=== PATIENT | female | born 1980 | race Caucasian/White ===

== ENCOUNTER 2016-09-01 09:49 | Emergency (ER) | payer BC ==
[~2016-09-01] VITALS: Ht 162.6 cm; Wt 78.7 kg
[~2016-09-01 09:49] MED LIST: BACTDS PO; CEPH-443 PO; HYDR-906 PO; IBUP-1542 PO; PREN1TAB49 PO
[2016-09-01 10:04] VITALS: Ht 162.6 cm; Wt 78.7 kg
[2016-09-01] MEDS ORDERED: CEPH-443 PO (11:20)
[2016-09-01] MEDS ORDERED: BACTDS PO (11:20)
--- NOTE | 2016-09-01 11:26 | ERD ---
ER Documentation Chief Complaint Date/Time DATE: 09/01/16 TIME: 11:22 Chief Complaint INSECT BITE ON RT POSTERIOR UPPER LEG NEAR BUTTOCK HPI This is a 35-year-old female presenting to the emergency room stating that she got a bug bite on her right inner thigh and it has been tender for 2 days. Patient states that it started off itchy but then it itching is resolved and now it is painful. Patient states she had a history of abscess she is afraid this is turning into an abscess. Patient denies any fevers. Denies medical problems ROS All systems reviewed and are negative except as per history of present illness. Medications Home Meds Active Scripts Sulfamethoxazole-Trimethoprim* (Bactrim* DS) 800-160 Mg Tab, 1 TAB PO BID for 5 Days, TAB Prov:JAMIR GUALLPA PA-C 09/01/16 Cephalexin* (Keflex*) 500 Mg Capsule, 500 MG PO QID for 7 Days, CAP Prov:JAMIR GUALLPA PA-C 09/01/16 Hydrocodone/Acetaminophen ([place] 5-325 Tablet) 1 Each Tablet, 1 TAB PO Q6H Y for PAIN, #20 TAB Prov:VELMA ASH HUMAN RESOURCES OFFICE MANAGER 05/03/16 Ibuprofen* (Motrin*) 600 Mg Tab, 600 MG PO Q6H Y for PAIN AND OR ELEVATED TEMP, #30 TAB Prov:VELMA ASH NP 05/03/16 Cephalexin* (Keflex*) 500 Mg Capsule, 500 MG PO QID for 10 Days, CAP Prov:VELMA ASH NP 05/03/16 Sulfamethoxazole-Trimethoprim* (Bactrim* DS) 800-160 Mg Tab, 1 TAB PO BID for 10 Days, TAB Prov:VELMA ASH HUMAN RESOURCES OFFICE MANAGER 05/03/16 Reported Medications Vits W-Ca,Fe,Fa(<1MG) () 1 Tab Tablet, 1 TAB PO DAILY 11/15/11 Allergies Allergies: Coded Allergies: No Known Allergy (Unverified , 12/26/13) PMhx/Soc History of Surgery: No Anesthesia Reaction: No Hx Neurological Disorder: No Hx Respiratory Disorders: No Hx Cardiac Disorders: No Hx Psychiatric Problems: No Hx Miscellaneous Medical Probl: No Hx Alcohol Use: No Hx Substance Use: No Hx Tobacco Use: No Physical Exam Vitals Vital Signs Date Time Temp Pulse Resp B/P Pulse Ox O2 Delivery O2 Flow Rate FiO2 09/01/16 10:04 98.6 77 16 146/87 99 Physical Exam General: WD/WN, in no apparent distress, non-toxic appearing HENT: NC/AT Eyes: Conjunctiva normal Neck: Supple Pulm: Clear to auscultation, normal labored breathing; no wheezing/rales/ rhonchi heard CV: Good capillary refill GI: Non-distended, no guarding Back: No masses Ext: No clubbing, cyanosis, or edema Neuro: Moves on all fours Skin: 2 x 2 erythematous papule on the right inner thigh with mild induration, no evidence of purulence Normal turgor, color, and temperature. No ulcerations or rashes noted. Psych: Normal mood Procedures/MDM This is a 35-year-old female presenting to the emergency room with a complaint of an insect bite in the right inner thigh for the past 2 days which is likely to be mild cellulitis versus inflammatory response of insect bite. On examination it did not appear to have any drainage. There was no evidence of lymphangitis. Patient is suitable for outpatient antibiotic and to follow-up with the primary care physician. Discussed return the ER for any worsening symptoms. Patient understands and agrees with this plan Prescription Keflex and Bactrim was provided Departure Diagnosis: Primary Impression: Infected bite wound Condition: Stable Patient Instructions: Insect Sting/Bite, Infected Referrals: CECILIA COHEN MD (PCP) Additional Instructions: Take all medicines as directed. Return to this facility if you are not improving as expected. JAMIR GUALLPA PA-C Sep 01, 2016 11:26
== END 2016-09-01 11:25 | disposition home or self-care (01) ==
LOC: FTE 09:49
DX: S70.361A Insect bite (nonvenomous), right thigh, initial encounter (principal); L08.9 Local infection of the skin and subcutaneous tissue, unspecified; W57.XXXA Bitten or stung by nonvenomous insect and other nonvenomous arthropods, initial encounter; Y92.9 Unspecified place or not applicable
CPT/HCPCS: 99284

== ENCOUNTER 2017-12-03 08:25 | Emergency (ER) | END 2017-12-03 09:12 | disposition home or self-care (01) ==

== ENCOUNTER 2017-12-09 06:35 | Emergency (ER) | END 2017-12-09 08:54 | disposition home or self-care (01) ==

== ENCOUNTER 2017-12-11 08:26 | Emergency (ER) | END 2017-12-11 10:41 | disposition home or self-care (01) ==

== ENCOUNTER 2018-04-27 07:01 | Emergency (ER) | END 2018-04-27 07:47 | disposition home or self-care (01) ==

== ENCOUNTER 2018-08-22 08:09 | Emergency (ER) | payer BC ==
[~2018-08-22] VITALS: Ht 167.6 cm; Wt 88.9 kg
[~2018-08-22 08:09] MED LIST changes: +CIPR500T4 PO; +HYDR-4011 PO; -HYDR-906 PO; +ONDA4TAB14 PO; +PHEN-538 PO
[2018-08-22 08:10] VITALS: BP 165/81; PULSE 76; RESP 18; Ht 167.6 cm; Wt 88.9 kg
--- NOTE | 2018-08-22 09:04 | ERD ---
ER Documentation Chief Complaint Chief Complaint pain with urination x 2 days HPI 37-year-old female presents to the ED complaining of painful urination and frequency for the past 2 days. Patient denies fevers, abdominal pain, pain, hematuria, vaginal discharge. Patient states that she sexually active with one partner her . Patient states that she has a history of frequent urinary tract infections about a year ago, she states that she did follow-up with a urologist in which they told her that her uterus is a little bit lower than normal. She denies taking medications. ROS All systems reviewed and are negative except as per history of present illness. Medications Home Meds Active Scripts Phenazopyridine Hcl* (Pyridium*) 200 Mg Tab, 200 MG PO TID PRN for URINARY PAIN, #6 TAB Prov:JAMIR GUALLPA PA-C 08/22/18 Ciprofloxacin Hcl* (Ciprofloxacin Hcl*) 500 Mg Tablet, 500 MG PO BID for 5 Days, TAB Prov:JAMIR GUALLPA PA-C 08/22/18 Ondansetron (Ondansetron Odt) 4 Mg Tab.rapdis, 4 MG PO Q6H PRN for NAUSEA AND/OR VOMITING, #30 TAB Prov:JAMIR GUALLPA PA-C 12/11/17 Ciprofloxacin Hcl* (Ciprofloxacin Hcl*) 500 Mg Tablet, 500 MG PO BID for 10 Days, TAB Prov:DOMINIQUE SAMPSON PA-C 12/09/17 Phenazopyridine Hcl* (Pyridium*) 200 Mg Tab, 200 MG PO TID PRN for URINARY PAIN, #6 TAB Prov:TATY DOMINGUEZ PA-C 12/03/17 Cephalexin* (Keflex*) 500 Mg Capsule, 500 MG PO TID for 7 Days, CAP Prov:TATY DOMINGUEZ PA-C 12/03/17 Sulfamethoxazole-Trimethoprim* (Bactrim* DS) 800-160 Mg Tab, 1 TAB PO BID for 5 Days, TAB Prov:JAMIR GUALLPA PA-C 09/01/16 Cephalexin* (Keflex*) 500 Mg Capsule, 500 MG PO QID for 7 Days, CAP Prov:JAMIR GUALLPA PA-C 09/01/16 Hydrocodone/Acetaminophen ([place] 5-325 Tablet) 1 Each Tablet, 1 TAB PO Q6H PRN for PAIN, #20 TAB Prov:VELMA ASH NP 05/03/16 Ibuprofen* (Motrin*) 600 Mg Tab, 600 MG PO Q6H PRN for PAIN AND OR ELEVATED TEMP, #30 TAB Prov:VELMA ASH NP 05/03/16 Cephalexin* (Keflex*) 500 Mg Capsule, 500 MG PO QID for 10 Days, CAP Prov:VELMA ASH NP 05/03/16 Sulfamethoxazole-Trimethoprim* (Bactrim* DS) 800-160 Mg Tab, 1 TAB PO BID for 10 Days, TAB Prov:VELMA ASH NP 05/03/16 Reported Medications Vits W-Ca,Fe,Fa(<1MG) () 1 Tab Tablet, 1 TAB PO DAILY 11/15/11 Allergies Allergies: Coded Allergies: Sulfa (Sulfonamide Antibiotics) (Verified Allergy, Intermediate, 08/22/18) sulfamethoxazole (Verified Allergy, Intermediate, RASHES, 08/22/18) trimethoprim (Verified Allergy, Intermediate, RASHES, 08/22/18) PMhx/Soc History of Surgery: Yes (gallbladder removed) Anesthesia Reaction: No Hx Neurological Disorder: No Hx Respiratory Disorders: No Hx Cardiac Disorders: No Hx Psychiatric Problems: No Hx Miscellaneous Medical Probl: No Hx Alcohol Use: No Hx Substance Use: No Hx Tobacco Use: No Physical Exam Vitals Vital Signs Date Temp Pulse Resp B/P (MAP) Pulse Ox O2 O2 Flow FiO2 Time Delivery Rate 08/22/18 99.8 76 18 165/81 100 08:10 (109) Physical Exam General: well-developed/well-nourished, in no apparent distress, non-toxic appearing HENT: NC/AT Eyes: Conjunctiva normal Neck: Supple Pulm: CTA bilaterally, normal breathing CV: Normal S1S2 GI: Soft, non-distended, normal bowel sounds, TTP on suprapubic region Back: No midline tenderness, no masses, No CVAT Ext: No clubbing, cyanosis, or edema Neuro: Alert and orientated Skin: intact, normal turgor Psych: Normal mood and mentation Results 24 hrs Laboratory Tests Test 08/22/18 08:46 08/22/18 08:56 Urine Color KAMLA Urine Clarity CLOUDY Urine pH 5.0 Urine Specific [place] 1.011 Urine Ketones NEGATIVE mg/dL Urine Nitrite NEGATIVE mg/dL Urine Bilirubin NEGATIVE mg/dL Urine Urobilinogen NEGATIVE mg/dL Urine Leukocyte Esterase 3+ Stacey/ul Urine Microscopic RBC 12 /HPF Urine Microscopic WBC > 182 /HPF Urine Squamous Epithelial Cells MANY /HPF Urine Bacteria FEW /HPF Urine Hemoglobin NEGATIVE mg/dL Urine Glucose NEGATIVE mg/dL Urine Total Protein NEGATIVE mg/dl POC Beta HCG, Qualitative NEGATIVE Procedures/MDM 37-year-old female presents to the ER with signs and symptoms most consistent with urinary tract infection. Low suspicion for pyelonephritis, nephrolithiasis, ovarian torsion due to physical examination and diagnostic testing. UA positive for infection, patient states she had a history of UTI that was resistant to some antibiotics therefore a urine culture was sent out. Disposition: Patient is in stable condition for discharge. Prescriptions Cipro and Pyridium have been given to take as directed. Strict precautions were given to return to the ER if not improving as expected or for any worsening signs and symptoms Departure Diagnosis: Primary Impression: UTI (urinary tract infection) Condition: Stable JAMIR GUALLPA PA-C Aug 22, 2018 09:04
[2018-08-22] MEDS ORDERED: CIPR500T4 PO (09:09)
[2018-08-22] MEDS ORDERED: PHEN-538 PO (09:24)
== END 2018-08-22 09:32 | disposition home or self-care (01) ==
LOC: FTE 08:09
DX: N39.0 Urinary tract infection, site not specified (principal)
CPT/HCPCS: 81001; 81025; 87086; Z7502; 99283

== ENCOUNTER 2018-09-03 08:08 | Emergency (ER) | payer BC ==
[~2018-09-03] VITALS: Ht 167.6 cm; Wt 88.7 kg
[2018-09-03 08:12] VITALS: BP 158/96; PULSE 79; RESP 20; Ht 167.6 cm; Wt 88.7 kg
--- NOTE | 2018-09-03 08:41 | ERD ---
ER Documentation Chief Complaint Chief Complaint Complains of urine problems HPI Patient is a 37-year-old female with a past medical history of recurrent UTIs, presents the ER for concerns of dysuria, frequency, urgency. Patient was seen here on 08-22-18. Patient states she was given ciprofloxacin. Patient states intermittently her symptoms had resolved however her symptoms restarted 3-4 days ago. Patient denies any fevers or chills. Patient denies any flank pain. Patient denies any hematuria. Patient states she just ended her last menstrual period. ROS All systems reviewed and are negative except as per history of present illness. Medications Home Meds Active Scripts Cephalexin* (Keflex*) 500 Mg Capsule, 500 MG PO TID for 7 Days, CAP Prov:AMARA GIORDANO PA-C 09/03/18 Phenazopyridine Hcl* (Pyridium*) 200 Mg Tab, 200 MG PO TID PRN for URINARY PAIN, #6 TAB Prov:JAMIR GUALLPA PA-C 08/22/18 Ciprofloxacin Hcl* (Ciprofloxacin Hcl*) 500 Mg Tablet, 500 MG PO BID for 5 Days, TAB Prov:JAMIR GUALLPAC 08/22/18 Ondansetron (Ondansetron Odt) 4 Mg Tab.rapdis, 4 MG PO Q6H PRN for NAUSEA AND/OR VOMITING, #30 TAB Prov:JAMIR GUALLPAC 12/11/17 Ciprofloxacin Hcl* (Ciprofloxacin Hcl*) 500 Mg Tablet, 500 MG PO BID for 10 Days, TAB Prov:DOMINIQUE SAMPSON PA-C 12/09/17 Phenazopyridine Hcl* (Pyridium*) 200 Mg Tab, 200 MG PO TID PRN for URINARY PAIN, #6 TAB Prov:TATY DOMINGUEZ PA-C 12/03/17 Cephalexin* (Keflex*) 500 Mg Capsule, 500 MG PO TID for 7 Days, CAP Prov:TATY DOMINGUEZ PA-C 12/03/17 Sulfamethoxazole-Trimethoprim* (Bactrim* DS) 800-160 Mg Tab, 1 TAB PO BID for 5 Days, TAB Prov:JAMIR GUALLPA PA-C 09/01/16 Cephalexin* (Keflex*) 500 Mg Capsule, 500 MG PO QID for 7 Days, CAP Prov:JAMIR GUALLPA PA-C 09/01/16 Hydrocodone/Acetaminophen ([place] 5-325 Tablet) 1 Each Tablet, 1 TAB PO Q6H PRN for PAIN, #20 TAB Prov:VELMA ASH FLYER MAKER 05/03/16 Ibuprofen* (Motrin*) 600 Mg Tab, 600 MG PO Q6H PRN for PAIN AND OR ELEVATED TEMP, #30 TAB Prov:VELMA ASH FLYER MAKER 05/03/16 Cephalexin* (Keflex*) 500 Mg Capsule, 500 MG PO QID for 10 Days, CAP Prov:VELMA ASH FLYER MAKER 05/03/16 Sulfamethoxazole-Trimethoprim* (Bactrim* DS) 800-160 Mg Tab, 1 TAB PO BID for 10 Days, TAB Prov:VELMA ASH FLYER MAKER 05/03/16 Reported Medications Vits W-Ca,Fe,Fa(<1MG) () 1 Tab Tablet, 1 TAB PO DAILY 11/15/11 Allergies Allergies: Coded Allergies: Sulfa (Sulfonamide Antibiotics) (Verified Allergy, Intermediate, 08/22/18) sulfamethoxazole (Verified Allergy, Intermediate, RASHES, 08/22/18) trimethoprim (Verified Allergy, Intermediate, RASHES, 08/22/18) PMhx/Soc History of Surgery: Yes (gallbladder removed) Anesthesia Reaction: No Hx Neurological Disorder: No Hx Respiratory Disorders: No Hx Cardiac Disorders: No Hx Psychiatric Problems: No Hx Miscellaneous Medical Probl: No Hx Alcohol Use: No Hx Substance Use: No Hx Tobacco Use: No FmHx Family History: No diabetes Physical Exam Vitals Vital Signs Date Temp Pulse Resp B/P (MAP) Pulse Ox O2 O2 Flow FiO2 Time Delivery Rate 09/03/18 98.3 79 20 158/96 100 08:12 (116) Physical Exam GENERAL: Well-developed, well-nourished female. Appears in no acute distress. HEAD: Normocephalic, atraumatic. EYES: Pupils are equally reactive bilaterally. EOMs grossly intact. No conjunctival erythema. NECK: Supple. No meningismus. Normal range of motion of the neck. LUNG: Clear to auscultation bilaterally. No rhonchi, wheezing, rales or coarse breath sounds. HEART: Regular rate and rhythm. No murmurs, rubs or gallops. ABDOMEN: Soft, nontender, and nondistended. Positive bowel sounds in all four quadrants. No rebound tenderness, no guarding. (-) McBurney's point tenderness. No CVA tenderness. EXTREMITIES: Equal pulses bilaterally. No peripheral clubbing, cyanosis or edema. No unilateral leg swelling. NEUROLOGIC: Alert and oriented. Moving all four extremities without any difficulty. Normal speech. Steady gait. SKIN: Normal color. Warm and dry. No rashes or lesions. Results 24 hrs Laboratory Tests Test 09/03/18 08:59 09/03/18 09:00 Bedside Urine pH (LAB) 6.5 Bedside Urine Protein (LAB) Negative Bedside Urine Glucose (UA) Negative Bedside Urine Ketones (LAB) Negative Bedside Urine Blood Negative Bedside Urine Nitrite (LAB) Positive Bedside Urine Leukocyte Esterase (L 1+ POC Beta HCG, Qualitative NEGATIVE Procedures/MDM MEDICAL DECISION MAKING: This is a 37-year-old female with a history of recurrent UTIs presents ER for concerns of urinary symptoms times 3-4 days. Vital signs were reviewed. Patient was afebrile. UA showed + nitrites, 1+ leukocytes. Urine was negative. Medical records were reviewed. Patient was seen here on 08-22-18 given ciprofloxacin for concerns of UTI. Urine culture was performed at that time. Culture did grow out strep B. Will change prescription to Keflex at this time. Patient was also given Rocephin IM. Patient tolerated this medication with no comp occasions for at this time for the patient presentation is most consistent recurrent UTIs. Low suspicion for pyelonephritis, nephrolithiasis, appendicitis, diverticulitis, constipation,ectopic , PID, ovarian torsion, or tubo-ovarian abscess. Patient was encouraged to follow-up with urologist. Referral information provided. PRESCRIPTIONS: Keflex DISCHARGE: At this time, patient is stable for discharge and outpatient management. I have instructed the patient to follow-up with his/her primary care physician in 1-2 days. Patient should repeat UA in 2 weeks to check for resolution of urinary tract infection. If symptoms persist, patient may need to see a specialist for further examinations and testing. I have instructed the patient to promptly return to the ER at any time for any new or worsening symptoms including increased pain, fever, nausea, vomiting, urinary changes or weakness. The patient and/or family expressed understanding of and agreement with this plan. All questions were answered. Home care instructions were provided. Disclaimer: Inadvertent spelling and grammatical errors are likely due to EHR/dictation software use and do not reflect on the overall quality of patient care. Also, please note that the electronic time recorded on this note does not necessarily reflect the actual time of the patient encounter. Departure Diagnosis: Primary Impression: UTI (urinary tract infection) Urinary tract infection type: site unspecified Hematuria presence: without hematuria Qualified Codes: N39.0 - Urinary tract infection, site not specified Condition: Stable Patient Instructions: Understanding Urinary Tract Infections (UTIs) Referrals: TOMMIE TIDWELL MD Additional Instructions: Follow up with urologist for recurrent UTIs. Call your primary care doctor TOMORROW for an appointment during the next 1-2 days.See the doctor sooner or return here if your condition worsens before your appointment time. AMARA GIORDANO PA-C Sep 03, 2018 08:41
[2018-09-03] MEDS ORDERED: CEPH-443 PO (09:06)
[2018-09-03] MEDS ORDERED: CEFTRIAXONE 1 GM INJ IM ONE (09:30)
[2018-09-03] MEDS ORDERED: LIDOCAINE 1% (MDV) 20 ML INJ SC ONE (09:30)
== END 2018-09-03 09:31 | disposition home or self-care (01) ==
LOC: FTE 08:08
DX: N39.0 Urinary tract infection, site not specified (principal)
CPT/HCPCS: 81003; 81025; 96372; J0696; Z7502; Z7610

== ENCOUNTER 2018-09-14 08:23 | Emergency (ER) | payer BC ==
[~2018-09-14] VITALS: Wt 90.2 kg
[2018-09-14 08:29] VITALS: BP 149/80; PULSE 79; RESP 16
[2018-09-14] MEDS ORDERED: FLUC150T PO (09:50)
--- NOTE | 2018-09-14 09:55 | ERD ---
ER Documentation Chief Complaint Chief Complaint ON AND OFF PAIN WITH URINATION X1 MONTH, NO HEMATURIA/DISCHARGE HPI This is a 37-year-old female who presents with complaint of vaginal itching and burning with urination. States she recently has had 2 UTIs the first 1 treated with Cipro the second treated with Keflex after positive Group B strep on the urine culture. States last year she had 6 urinary tract infections, has been followed by urologist. Denies flank pain, denies fever. States that she is having vaginal itching and some white thick vaginal discharge. ROS All systems reviewed and are negative except as per history of present illness. Medications Home Meds Active Scripts Fluconazole* (Diflucan*) 150 Mg Tablet, 150 MG PO ONCE, #1 TAB Prov:JEISON DE LA O NP 09/14/18 Cephalexin* (Keflex*) 500 Mg Capsule, 500 MG PO TID for 7 Days, CAP Prov:AMARA GIORDANOC 09/03/18 Phenazopyridine Hcl* (Pyridium*) 200 Mg Tab, 200 MG PO TID PRN for URINARY PAIN, #6 TAB Prov:JAMIR GUALLPAC 08/22/18 Ciprofloxacin Hcl* (Ciprofloxacin Hcl*) 500 Mg Tablet, 500 MG PO BID for 5 Days, TAB Prov:JAMIR GUALLPAC 08/22/18 Ondansetron (Ondansetron Odt) 4 Mg Tab.rapdis, 4 MG PO Q6H PRN for NAUSEA AND/OR VOMITING, #30 TAB Prov:JAMIR GUALLPAC 12/11/17 Ciprofloxacin Hcl* (Ciprofloxacin Hcl*) 500 Mg Tablet, 500 MG PO BID for 10 Days, TAB Prov:DOMINIQUE SAMPSONC 12/09/17 Phenazopyridine Hcl* (Pyridium*) 200 Mg Tab, 200 MG PO TID PRN for URINARY PAIN, #6 TAB Prov:TATY DOMINGUEZ PA-C 12/03/17 Cephalexin* (Keflex*) 500 Mg Capsule, 500 MG PO TID for 7 Days, CAP Prov:TATY DOMINGUEZC 12/03/17 Sulfamethoxazole-Trimethoprim* (Bactrim* DS) 800-160 Mg Tab, 1 TAB PO BID for 5 Days, TAB Prov:JAMIR GUALLPA PA-C 09/01/16 Cephalexin* (Keflex*) 500 Mg Capsule, 500 MG PO QID for 7 Days, CAP Prov:JAMIR GUALLPA PA-C 09/01/16 Hydrocodone/Acetaminophen ([place] 5-325 Tablet) 1 Each Tablet, 1 TAB PO Q6H PRN for PAIN, #20 TAB Prov:VELMA ASH NP 05/03/16 Ibuprofen* (Motrin*) 600 Mg Tab, 600 MG PO Q6H PRN for PAIN AND OR ELEVATED TEMP, #30 TAB Prov:VELMA ASH HEMODIALYSIS LAB TECHNICIAN 05/03/16 Cephalexin* (Keflex*) 500 Mg Capsule, 500 MG PO QID for 10 Days, CAP Prov:VELMA ASH HEMODIALYSIS LAB TECHNICIAN 05/03/16 Sulfamethoxazole-Trimethoprim* (Bactrim* DS) 800-160 Mg Tab, 1 TAB PO BID for 10 Days, TAB Prov:VELMA ASH NP 05/03/16 Reported Medications Vits W-Ca,Fe,Fa(<1MG) () 1 Tab Tablet, 1 TAB PO DAILY 11/15/11 Allergies Allergies: Coded Allergies: Sulfa (Sulfonamide Antibiotics) (Verified Allergy, Intermediate, 08/22/18) sulfamethoxazole (Verified Allergy, Intermediate, RASHES, 08/22/18) trimethoprim (Verified Allergy, Intermediate, RASHES, 08/22/18) PMhx/Soc Medical and Surgical Hx: pt denies Medical Hx History of Surgery: Yes (gallbladder removed) Anesthesia Reaction: No Hx Neurological Disorder: No Hx Respiratory Disorders: No Hx Cardiac Disorders: No Hx Psychiatric Problems: No Hx Miscellaneous Medical Probl: No Hx Alcohol Use: No Hx Substance Use: No Hx Tobacco Use: No FmHx Family History: No diabetes, No coronary disease, No other Physical Exam Vitals Vital Signs Date Temp Pulse Resp B/P (MAP) Pulse Ox O2 O2 Flow FiO2 Time Delivery Rate 09/14/18 98.4 79 16 149/80 99 08:29 (103) Physical Exam Const: No acute distress Head: Atraumatic Eyes: Normal Conjunctiva, PERRL ENT: Normal External Ears, Nose and Mouth. Pharynx pink without lesions or exudate Neck: Full range of motion. No meningismus. Resp: Clear to auscultation bilaterally Cardio: Regular rate and rhythm, no murmurs Abd: Soft, non tender, non distended. Normal bowel sounds Skin: No petechiae or rashes Back: No midline or flank tenderness Ext: No cyanosis, or edema Neur: Awake and alert Psych: Normal Mood and Affect Genitalia: External genitalia without lesions, abrasions, or abnormal anatomy. Labia minora with redness and papular rash appearance, tender with palpation, thick white discharge observed. Results 24 hrs Laboratory Tests Test 09/14/18 09:15 09/14/18 09:21 POC Beta HCG, Qualitative NEGATIVE Bedside Urine pH (LAB) 6.0 Bedside Urine Protein (LAB) Negative Bedside Urine Glucose (UA) Negative Bedside Urine Ketones (LAB) Negative Bedside Urine Blood Trace-intact Bedside Urine Nitrite (LAB) Negative Bedside Urine Leukocyte Esterase (L 3+ Procedures/MDM This is a 37-year-old patient who presents with complaint of vaginal itching and pain with urination. POC urine sample collected. Results negative for nitrites, trace blood, positive leukocytes. This may indicate a contaminated specimen. Urine will be sent to the lab for urine culture. Denies urinary frequency, pelvic pressure,Based on patient's description of itching, discharge, and irritation, and observation of red labia, patient will be treated for Humera infection. Discussed with patient that she may still have a UTI however given the absence of nitrates and gross hematuria and her symptoms of itching and burning of her labia this is most likely a yeast infection however confirmation will be made with urine culture. Low suspicion for other pelvic infection such as PID, STI, prolapse, ovarian involvement. Patient verbalized understanding of use of Diflucan, increasing hydration, perennial hygiene, and will follow up with her primary care doctor or her urologist for any further symptoms. Patient was instructed to return to the emergency room with fever, abdominal pain, flank pain. Departure Diagnosis: Primary Impression: Vaginitis Additional Impression: Genitourinary symptoms Condition: Stable Patient Instructions: Urinary Tract Infections in Women, Vaginal Infection: Yeast (Candidiasis) Referrals: COMMUNITY CLINICS YOU HAVE RECEIVED A MEDICAL SCREENING EXAM AND THE RESULTS INDICATE THAT YOU DO NOT HAVE A CONDITION THAT REQUIRES URGENT TREATMENT IN THE EMERGENCY DEPARTMENT. FURTHER EVALUATION AND TREATMENT OF YOUR CONDITION CAN WAIT UNTIL YOU ARE SEEN IN YOUR DOCTORS OFFICE WITHIN THE NEXT 1-2 DAYS. IT IS YOUR RESPONSIBILITY TO MAKE AN APPOINTMENT FOR FOLOW-UP CARE. IF YOU HAVE A PRIMARY DOCTOR --you should call your primary doctor and schedule an appointment IF YOU DO NOT HAVE A PRIMARY DOCTOR YOU CAN CALL OUR PHYSICIAN REFERRAL HOTLINE AT IF YOU CAN NOT AFFORD TO SEE A PHYSICIAN YOU CAN CHOSE FROM THE FOLLOWING [facility] [address] [facility] [address] [facility] [address] [facility] [address] [facility] [address], [facility]. [facility]. [address] Additional Instructions: Call your primary care doctor TOMORROW for an appointment during the next 2-3 days.See the doctor sooner or return here if your condition worsens before your appointment time. Your urine was sent for culture. You will be contacted if culture grows out organism that needs to be treated with antibiotic. Increase hydration, maintain good perennial hygiene, return to emergency room with any flank pain, fever, nausea vomiting. JEISON DE LA O NP Sep 14, 2018 09:55
== END 2018-09-14 10:02 | disposition home or self-care (01) ==
LOC: FTE 08:23
DX: N76.0 Acute vaginitis (principal)
CPT/HCPCS: 81003; 81025; 87086; Z7502; 99283

== ENCOUNTER 2018-12-27 05:11 | Emergency (ER) | payer BC ==
[~2018-12-27] VITALS: Ht 162.6 cm; Wt 97.1 kg
[~2018-12-27 05:11] MED LIST changes: +FLUC150T PO
[2018-12-27 05:17] VITALS: Ht 162.6 cm; Wt 97.1 kg
[2018-12-27] MEDS ORDERED: DOXY100T20 PO (05:52)
--- NOTE | 2018-12-27 05:56 | ERD ---
ER Documentation Chief Complaint Chief Complaint R inner thigh (near groin) abscess x 3 days HPI 38-year-old female presents to the emergency department with complaints of abscess to her right groin region for the past 2 days. Symptoms have worsened. She reports associated pain which is mild and intermittent. She tried no medication for relief of symptoms. She denies any fevers, chills, or other symptoms at this time. ROS All systems reviewed and are negative except as per history of present illness. Medications Home Meds Active Scripts Doxycycline Hyclate* (Doxycycline Hyclate*) 100 Mg Tablet.dr, 100 MG PO BID for 10 Days, TAB Prov:TEDDY TEAGUEC 12/27/18 Fluconazole* (Diflucan*) 150 Mg Tablet, 150 MG PO ONCE, #1 TAB Prov:JEISON DE LA O NP 09/14/18 Cephalexin* (Keflex*) 500 Mg Capsule, 500 MG PO TID for 7 Days, CAP Prov:AMARA GIORDANOC 09/03/18 Phenazopyridine Hcl* (Pyridium*) 200 Mg Tab, 200 MG PO TID PRN for URINARY PAIN, #6 TAB Prov:JAMIR GUALLPAC 08/22/18 Ciprofloxacin Hcl* (Ciprofloxacin Hcl*) 500 Mg Tablet, 500 MG PO BID for 5 Days, TAB Prov:JAMIR GUALLPAC 08/22/18 Ondansetron (Ondansetron Odt) 4 Mg Tab.rapdis, 4 MG PO Q6H PRN for NAUSEA AND/OR VOMITING, #30 TAB Prov:JAMIR GUALLPAC 12/11/17 Ciprofloxacin Hcl* (Ciprofloxacin Hcl*) 500 Mg Tablet, 500 MG PO BID for 10 Days, TAB Prov:DOMINIQUE SAMPSONC 12/09/17 Phenazopyridine Hcl* (Pyridium*) 200 Mg Tab, 200 MG PO TID PRN for URINARY PAIN, #6 TAB Prov:TATY DOMINGUEZ PA-C 12/03/17 Cephalexin* (Keflex*) 500 Mg Capsule, 500 MG PO TID for 7 Days, CAP Prov:TATY DOMINGUEZC 12/03/17 Sulfamethoxazole-Trimethoprim* (Bactrim* DS) 800-160 Mg Tab, 1 TAB PO BID for 5 Days, TAB Prov:JAMIR GUALLPA PA-C 09/01/16 Cephalexin* (Keflex*) 500 Mg Capsule, 500 MG PO QID for 7 Days, CAP Prov:JAMIR GUALLPA PA-C 09/01/16 Hydrocodone/Acetaminophen ([place] 5-325 Tablet) 1 Each Tablet, 1 TAB PO Q6H PRN for PAIN, #20 TAB Prov:VELMA ASH NP 05/03/16 Ibuprofen* (Motrin*) 600 Mg Tab, 600 MG PO Q6H PRN for PAIN AND OR ELEVATED TEMP, #30 TAB Prov:VELMA ASH NP 05/03/16 Cephalexin* (Keflex*) 500 Mg Capsule, 500 MG PO QID for 10 Days, CAP Prov:VELMA ASH POLO COACH 05/03/16 Sulfamethoxazole-Trimethoprim* (Bactrim* DS) 800-160 Mg Tab, 1 TAB PO BID for 10 Days, TAB Prov:VELMA ASH POLO COACH 05/03/16 Reported Medications Vits W-Ca,Fe,Fa(<1MG) () 1 Tab Tablet, 1 TAB PO DAILY 11/15/11 Allergies Allergies: Coded Allergies: Sulfa (Sulfonamide Antibiotics) (Verified Allergy, Intermediate, 08/22/18) sulfamethoxazole (Verified Allergy, Intermediate, RASHES, 08/22/18) trimethoprim (Verified Allergy, Intermediate, RASHES, 08/22/18) PMhx/Soc History of Surgery: Yes (gallbladder removed) Anesthesia Reaction: No Hx Neurological Disorder: No Hx Respiratory Disorders: No Hx Cardiac Disorders: No Hx Psychiatric Problems: No Hx Miscellaneous Medical Probl: No Hx Alcohol Use: No Hx Substance Use: No Hx Tobacco Use: No FmHx Family History: No diabetes Physical Exam Vitals Vital Signs Date Temp Pulse Resp B/P (MAP) Pulse Ox O2 O2 Flow FiO2 Time Delivery Rate 12/27/18 99.5 84 18 154/88 97 05:17 (110) Physical Exam Const: No acute distress Head: Atraumatic Eyes: Normal Conjunctiva ENT: Normal External Ears, Nose and Mouth. Neck: Full range of motion. No meningismus. Resp: No respiratory distress. Skin: There is an approximate 2 cm x 2 cm indurated abscess noted to the right groin region with mild surrounding erythema. Back: No midline or flank tenderness Ext: No cyanosis, or edema Neur: Awake and alert Psych: Normal Mood and Affect Procedures/MDM 38-year-old female presents to the emergency department complaints of abscess to the right groin region. No indication for incision and drainage at this time as the abscesses indurated. The patient will be treated as an outpatient with a prescription for doxycycline. She is advised to return to the department immediately for any new or worsening or concerning symptoms. 2-day wound check was advised. Patient understood and agreed with the diagnosis, plan, need for follow-up, return precautions. Departure Diagnosis: Primary Impression: Acute abscess Condition: Fair Patient Instructions: Abscess, Antiobiotic Treatment Only Referrals: [facility] YOU HAVE RECEIVED A MEDICAL SCREENING EXAM AND THE RESULTS INDICATE THAT YOU DO NOT HAVE A CONDITION THAT REQUIRES URGENT TREATMENT IN THE EMERGENCY DEPARTMENT. FURTHER EVALUATION AND TREATMENT OF YOUR CONDITION CAN WAIT UNTIL YOU ARE SEEN IN YOUR DOCTORS OFFICE WITHIN THE NEXT 1-2 DAYS. IT IS YOUR RESPONSIBILITY TO MAKE AN APPOINTMENT FOR FOLOW-UP CARE. IF YOU HAVE A PRIMARY DOCTOR --you should call your primary doctor and schedule an appointment IF YOU DO NOT HAVE A PRIMARY DOCTOR YOU CAN CALL OUR PHYSICIAN REFERRAL HOTLINE AT IF YOU CAN NOT AFFORD TO SEE A PHYSICIAN YOU CAN CHOSE FROM THE FOLLOWING [facility] [address] [facility] [facility] [address] [facility] [address] [facility] [address] [facility]. [facility] [address] [facility]. [facility]. [address] Additional Instructions: Call your primary care doctor TOMORROW for an appointment during the next 1-2 days.See the doctor sooner or return here if your condition worsens before your appointment time. TEDDY TEAGUE PA-C 27, 2019 05:56
== END 2018-12-27 06:00 | disposition home or self-care (01) ==
LOC: FTE 05:11
DX: L02.214 Cutaneous abscess of groin (principal)
CPT/HCPCS: 99283

== ENCOUNTER 2019-01-17 14:29 | Emergency (ER) | payer BC ==
[~2019-01-17] VITALS: Ht 162.6 cm; Wt 97.2 kg
[~2019-01-17 14:29] MED LIST changes: +DOXY100T20 PO
[2019-01-17 14:31] VITALS: Ht 162.6 cm; Wt 97.2 kg
[2019-01-17] MEDS ORDERED: LORAZEPAM 1 MG TAB PO ONE (16:30)
[2019-01-17] MEDS ORDERED: LORA1TAB PO (16:55)
[2019-01-17] MEDS ORDERED: NICARDipine HCL 30 MG CAPSULE PO ONE (17:00)
[2019-01-17] MEDS ORDERED: HYDR25TA6 PO (17:06)
[2019-01-17 17:13] VITALS: BP 156/82; PULSE 67; RESP 18
--- NOTE | 2019-01-18 17:05 | ERD ---
ER Documentation Chief Complaint Chief Complaint high blood pressure; headache ; nausea HPI 38-year-old female with history of hypertension presents with complaint of hypertension headaches and nausea for the past week. Patient states that she is not taking any blood pressure medication currently other took some in the past. States that her blood pressure just recently went up since she gained weight. Patient states that when she has high blood pressure she normally gets headaches. Denies sudden onset, worse headache of life, fever, neck stiffness, rash, headache getting worse with change in position, headache initiated by exertion, HAMILTON worse in the morning, HAMILTON waking up patient at night, new neurological deficits, numbness, weakness, vision problems, tenderness to palpation over temporal area, history of trauma, or possibility of CO2 poisoning. Denies past medical history. Denies allergies. Denies surgeries. Ronnie alcohol, tobacco, drug use. Up to date on vaccines. ROS All systems reviewed and are negative except as per history of present illness. Medications Home Meds Active Scripts Hydrochlorothiazide* (Hydrochlorothiazide*) 25 Mg Tab, 25 MG PO DAILY, #30 TAB Prov:TEDDY PARRA 01/17/19 Lorazepam* (Lorazepam*) 1 Mg Tablet, 1 MG PO Q8, #10 TAB Prov:TEDDY PARRA 01/17/19 Doxycycline Hyclate* (Doxycycline Hyclate*) 100 Mg Tablet.dr, 100 MG PO BID for 10 Days, TAB Prov:TEDDY TEAGUEC 12/27/18 Fluconazole* (Diflucan*) 150 Mg Tablet, 150 MG PO ONCE, #1 TAB Prov:JEISON DE LA O NP 09/14/18 Cephalexin* (Keflex*) 500 Mg Capsule, 500 MG PO TID for 7 Days, CAP Prov:AMARA GIORDANOC 09/03/18 Phenazopyridine Hcl* (Pyridium*) 200 Mg Tab, 200 MG PO TID PRN for URINARY PAIN, #6 TAB Prov:JAMIR GUALLPA PA-C 08/22/18 Ciprofloxacin Hcl* (Ciprofloxacin Hcl*) 500 Mg Tablet, 500 MG PO BID for 5 Days, TAB Prov:JAMIR GUALLPAC 08/22/18 Ondansetron (Ondansetron Odt) 4 Mg Tab.rapdis, 4 MG PO Q6H PRN for NAUSEA AND/OR VOMITING, #30 TAB Prov:JAMIR GUALLPAC 12/11/17 Ciprofloxacin Hcl* (Ciprofloxacin Hcl*) 500 Mg Tablet, 500 MG PO BID for 10 Days, TAB Prov:DOMINIQUE SAMPSONC 12/09/17 Phenazopyridine Hcl* (Pyridium*) 200 Mg Tab, 200 MG PO TID PRN for URINARY PAIN, #6 TAB Prov:TATY DOMINGUEZC 12/03/17 Cephalexin* (Keflex*) 500 Mg Capsule, 500 MG PO TID for 7 Days, CAP Prov:TATY DOMINGUEZC 12/03/17 Sulfamethoxazole-Trimethoprim* (Bactrim* DS) 800-160 Mg Tab, 1 TAB PO BID for 5 Days, TAB Prov:JAMIR GUALLPAC 09/01/16 Cephalexin* (Keflex*) 500 Mg Capsule, 500 MG PO QID for 7 Days, CAP Prov:JAMIR GUALLPAC 09/01/16 Hydrocodone/Acetaminophen ([place] 5-325 Tablet) 1 Each Tablet, 1 TAB PO Q6H PRN for PAIN, #20 TAB Prov:VELMA ASH NP 05/03/16 Ibuprofen* (Motrin*) 600 Mg Tab, 600 MG PO Q6H PRN for PAIN AND OR ELEVATED TEMP, #30 TAB Prov:VELMA ASH NP 05/03/16 Cephalexin* (Keflex*) 500 Mg Capsule, 500 MG PO QID for 10 Days, CAP Prov:VELMA ASH NP 05/03/16 Sulfamethoxazole-Trimethoprim* (Bactrim* DS) 800-160 Mg Tab, 1 TAB PO BID for 10 Days, TAB Prov:VELMA ASH NP 05/03/16 Reported Medications Vits W-Ca,Fe,Fa(<1MG) () 1 Tab Tablet, 1 TAB PO DAILY 11/15/11 Allergies Allergies: Coded Allergies: Sulfa (Sulfonamide Antibiotics) (Verified Allergy, Intermediate, 08/22/18) sulfamethoxazole (Verified Allergy, Intermediate, RASHES, 08/22/18) trimethoprim (Verified Allergy, Intermediate, RASHES, 08/22/18) PMhx/Soc History of Surgery: Yes (gallbladder removed) Anesthesia Reaction: No Hx Neurological Disorder: No Hx Respiratory Disorders: No Hx Cardiac Disorders: Yes (HTN) Hx Psychiatric Problems: Yes (Anxiety) Hx Miscellaneous Medical Probl: No Hx Alcohol Use: No Hx Substance Use: No Hx Tobacco Use: No Smoking Status: Never smoker FmHx Family History: No diabetes, No coronary disease, No other Physical Exam Vitals Vital Signs Date Temp Pulse Resp B/P (MAP) Pulse Ox O2 O2 Flow FiO2 Time Delivery Rate 01/17/19 98.2 67 18 156/82 98 Room Air 17:13 (106) 01/17/19 83 18 160/93 97 Room Air 16:06 (115) 01/17/19 98.9 96 22 179/96 99 14:31 (123) Physical Exam Const: No acute distress Head: Atraumatic Eyes: Normal Conjunctiva ENT: Normal External Ears, Nose and Mouth. Neck: Full range of motion. No meningismus. Resp: Clear to auscultation bilaterally Cardio: Regular rate and rhythm, no murmurs Abd: Soft, non tender, non distended. Normal bowel sounds Skin: No petechiae or rashes Back: No midline or flank tenderness Ext: No cyanosis, or edema Neur: Awake and alert Psych: Normal Mood and Affect Neuro: M/S: Alert and oriented Face: EOMI, face and pharynx with normal sensation and function Motor: Normal strength throughout Sensation: Normal sensation throughout Speech: Normal Cerebel: Normal coordination Normal gait Normal finger to nose DTR: 2+ and symmetric upper/lower extremities Results 24 hrs Current Medications Medications Dose Sig/Yong Start Time Status Last (Trade) Ordered Route PRN Stop Time Admin Dose Reason Admin Lorazepam 1 mg ONCE ONCE 01/17/19 DC 01/17/19 (Ativan) PO 16:30 16:06 01/17/19 16:31 Nicardipine 30 mg ONCE ONCE 01/17/19 DC 01/17/19 HCl PO 17:00 16:51 (Cardene) 01/17/19 17:01 Procedures/MDM MDM: Case was discussed with my supervising physician Dr. simons both have very low suspicion that this patient is suffering from any kind of CVA at this time. Patient has a history of getting headaches with hypertension this most likely represents repeat incidence of same thing. Patient was given Cardene in the ER and discharged with hydrochlorothiazide. Dr Pantoja stated that we do not need to ensure her blood pressure goes down before discharging as she is not in any kind of hypertensive crisis. Patient also stated she has acute anxiety and requested anxiety medication. I felt this was appropriate gave patient 1 mg of Ativan in the ER and discharged with a few days worth. At time of discharge patient states she is feeling better and all symptoms have resolved. In addition, patient was tacky upon arrival to the ER but pulse rate consistently I doubt that the ER course. At discharge patient still has slightly elevated pulse was most likely due to patient's on admission of anxiety. Low suspicion for thyroid crisis, sepsis, symptomatic anemia, dehydration or any emergent condition. I have low suspicion for intracranial hemorrhage, elevated intracranial press ure, intracranial mass, aneurysm, meningitis, malignant hypertension, giant cell arteritis, carotid dissection, intracranial abscess, cerebral venous thrombosis, CO2 poisoning, or other emergent causes of headache based on patients history and exam. At this time, patient is stable for discharge and outpatient management. I have instructed the patient to follow-up with his/her primary care physician in 1-2 days. I have discussed with the patient the possibility of needing to see a specialist for further workup and imaging studies if symptoms persist. I have instructed the patient to promptly return to the ER for any new or worsening symptoms including but not limited to increased pain, fever, nausea, vomiting, weakness or LOC. The patient and/or family expressed understanding of and agreement with this plan. All questions were answered. Home care instructions were provided. DISCLAIMER: Inadvertent spelling and grammatical errors are likely due to EHR/dictation software use and do not reflect on the overall quality of patient care. Also, please note that the electronic time recorded on this note does not necessarily reflect the actual time of the patient encounter. Departure Diagnosis: Primary Impression: Hypertension Additional Impression: Anxiety Condition: Stable Patient Instructions: Your Body's Response to Anxiety, High Blood Pressure (Hypertension), Anxiety Reaction Referrals: [facility] YOU HAVE RECEIVED A MEDICAL SCREENING EXAM AND THE RESULTS INDICATE THAT YOU DO NOT HAVE A CONDITION THAT REQUIRES URGENT TREATMENT IN THE EMERGENCY DEPARTMENT. FURTHER EVALUATION AND TREATMENT OF YOUR CONDITION CAN WAIT UNTIL YOU ARE SEEN IN YOUR DOCTORS OFFICE WITHIN THE NEXT 1-2 DAYS. IT IS YOUR RESPONSIBILITY TO MAKE AN APPOINTMENT FOR FOLOW-UP CARE. IF YOU HAVE A PRIMARY DOCTOR --you should call your primary doctor and schedule an appointment IF YOU DO NOT HAVE A PRIMARY DOCTOR YOU CAN CALL OUR PHYSICIAN REFERRAL HOTLINE AT IF YOU CAN NOT AFFORD TO SEE A PHYSICIAN YOU CAN CHOSE FROM THE FOLLOWING [facility] [address] [facility] [address] [facility] [address] [facility] [facility] [address] [facility] [address] [facility]. [facility] [address] [facility]. [facility] [address] Additional Instructions: FOLLOW UP WITH YOUR PRIMARY CARE PHYSICIAN TOMORROW.Return to this facility if you are not improving as expected. TEDDY PARRA Jan 18, 2019 17:05
[2019-01-27] MEDS ORDERED: CLIN300C10 PO (22:41)
== END 2019-01-17 17:15 | disposition home or self-care (01) ==
LOC: FTE 14:29
DX: I10 Essential (primary) hypertension (principal); F41.9 Anxiety disorder, unspecified
CPT/HCPCS: Z7502; Z7610; 99283

== ENCOUNTER 2019-01-27 20:15 | Emergency (ER) | payer BC ==
[~2019-01-27] VITALS: Ht 162.6 cm; Wt 97.3 kg
[~2019-01-27 20:15] MED LIST changes: +CLIN300C10 PO; +HYDR25TA6 PO; +LORA1TAB PO
[2019-01-27 20:22] VITALS: Ht 162.6 cm; Wt 97.3 kg
[2019-01-27] MEDS ORDERED: LIDOCAINE 1% (MDV) 20 ML INJ SC ONE (22:00)
--- NOTE | 2019-01-27 22:45 | ERD ---
ER Documentation Chief Complaint Chief Complaint lower abd abscess x 2 days HPI 38-year-old female presents complaint of abscess in her suprapubic area for the past 3 days. Patient states she gets frequent abscesses and she is had to get them drained in the past. States that doxycycline does not work for her in [place] of antibiotics and she is also allergic to Bactrim. Patient denies any fevers, chills, abdominal pain, nausea, vomiting, diarrhea. ROS All systems reviewed and are negative except as per history of present illness. Medications Home Meds Active Scripts Clindamycin Hcl* (Clindamycin Hcl*) 300 Mg Capsule, 300 MG PO TID for 7 Days, CAP Prov:TEDDY PARRA 01/27/19 Hydrochlorothiazide* (Hydrochlorothiazide*) 25 Mg Tab, 25 MG PO DAILY, #30 TAB Prov:TEDDY PARRA 01/17/19 Lorazepam* (Lorazepam*) 1 Mg Tablet, 1 MG PO Q8, #10 TAB Prov:TEDDY PARRA 01/17/19 Doxycycline Hyclate* (Doxycycline Hyclate*) 100 Mg Tablet.dr, 100 MG PO BID for 10 Days, TAB Prov:TEDDY TEAGUE-C 12/27/18 Fluconazole* (Diflucan*) 150 Mg Tablet, 150 MG PO ONCE, #1 TAB Prov:JEISON DE LA O NP 09/14/18 Cephalexin* (Keflex*) 500 Mg Capsule, 500 MG PO TID for 7 Days, CAP Prov:AMARA GIORDANO-C 09/03/18 Phenazopyridine Hcl* (Pyridium*) 200 Mg Tab, 200 MG PO TID PRN for URINARY PAIN, #6 TAB Prov:JAMIR GUALLPAC 08/22/18 Ciprofloxacin Hcl* (Ciprofloxacin Hcl*) 500 Mg Tablet, 500 MG PO BID for 5 Days, TAB Prov:JAMIR GUALLPAC 08/22/18 Ondansetron (Ondansetron Odt) 4 Mg Tab.rapdis, 4 MG PO Q6H PRN for NAUSEA AND/OR VOMITING, #30 TAB Prov:JAMIR GUALLPAC 12/11/17 Ciprofloxacin Hcl* (Ciprofloxacin Hcl*) 500 Mg Tablet, 500 MG PO BID for 10 Days, TAB Prov:DOMINIQUE SAMPSONC 12/09/17 Phenazopyridine Hcl* (Pyridium*) 200 Mg Tab, 200 MG PO TID PRN for URINARY PAIN, #6 TAB Prov:TATY DOMINGUEZ PA-C 12/03/17 Cephalexin* (Keflex*) 500 Mg Capsule, 500 MG PO TID for 7 Days, CAP Prov:TATY DOMINGUEZ PA-C 12/03/17 Sulfamethoxazole-Trimethoprim* (Bactrim* DS) 800-160 Mg Tab, 1 TAB PO BID for 5 Days, TAB Prov:JAMIR GUALLPAC 09/01/16 Cephalexin* (Keflex*) 500 Mg Capsule, 500 MG PO QID for 7 Days, CAP Prov:JAMIR GUALLPAC 09/01/16 Hydrocodone/Acetaminophen ([place] 5-325 Tablet) 1 Each Tablet, 1 TAB PO Q6H PRN for PAIN, #20 TAB Prov:VELMA ASH NP 05/03/16 Ibuprofen* (Motrin*) 600 Mg Tab, 600 MG PO Q6H PRN for PAIN AND OR ELEVATED TEMP, #30 TAB Prov:VELMA ASH NP 05/03/16 Cephalexin* (Keflex*) 500 Mg Capsule, 500 MG PO QID for 10 Days, CAP Prov:VELMA ASH NP 05/03/16 Sulfamethoxazole-Trimethoprim* (Bactrim* DS) 800-160 Mg Tab, 1 TAB PO BID for 10 Days, TAB Prov:VELMA ASH NP 05/03/16 Reported Medications Vits W-Ca,Fe,Fa(<1MG) () 1 Tab Tablet, 1 TAB PO DAILY 11/15/11 Allergies Allergies: Coded Allergies: Sulfa (Sulfonamide Antibiotics) (Verified Allergy, Intermediate, 08/22/18) sulfamethoxazole (Verified Allergy, Intermediate, RASHES, 08/22/18) trimethoprim (Verified Allergy, Intermediate, RASHES, 08/22/18) PMhx/Soc History of Surgery: Yes (gallbladder removed) Anesthesia Reaction: No Hx Neurological Disorder: No Hx Respiratory Disorders: No Hx Cardiac Disorders: Yes (HTN) Hx Psychiatric Problems: Yes (Anxiety) Hx Miscellaneous Medical Probl: No Hx Alcohol Use: No Hx Substance Use: No Hx Tobacco Use: No Smoking Status: Never smoker Physical Exam Vitals Vital Signs Date Temp Pulse Resp B/P (MAP) Pulse Ox O2 O2 Flow FiO2 Time Delivery Rate 01/27/19 99.5 110 20 143/86 100 20:22 (105) Physical Exam Const: No acute distress Head: Atraumatic Eyes: Normal Conjunctiva ENT: Normal External Ears, Nose and Mouth. Neck: Full range of motion. No meningismus. Resp: Clear to auscultation bilaterally Cardio: Regular rate and rhythm, no murmurs Abd: Soft, non tender, non distended. Normal bowel sounds Skin: No petechiae or rashes e approximately 3 cm erythematous fluctuant mass noted to the suprapubic area. Tender to palpation. There is no lymphatic streaking or draining noted. Back: No midline or flank tenderness Ext: No cyanosis, or edema Neur: Awake and alert Psych: Normal Mood and Affect Results 24 hrs Current Medications Medications Dose Sig/Yong Start Time Status Last (Trade) Ordered Route PRN Stop Time Admin Dose Reason Admin Lidocaine 20 ml ONCE ONCE 01/27/19 DC (Xylocaine SC 22:00 1% (Mdv) 20 01/27/19 22:01 ml) Procedures/MDM MDM: Abscess Incision and Drainage with irrigation by me: Location: Suprapubic area Anesthesia: Local 1% Lidocaine Technique: Irrigated. Disrupted loculations w/ instrumentation Packing: None Complications: Neurovascularly intact post procedure 48 hour wound check. Scar minimization instructions given. Abscess was drained using above technique. Patient tolerated procedure well without complications. Patient given Rx for clindamycin as she is allergic to Bactrim she states that doxycycline does not work for in the past. Patient advised to return in 48 hours for wound check and removal of packing material. To note, patient was slightly tachycardic at intake. I questioned patient about this and she states she is very nervous about having a procedure done. Patient denies any chest pain, heart palpitations, cough, fevers. My suspicion for sepsis is very low. At this time, patient is stable for discharge and outpatient management. I have instructed the patient to follow-up with his/her primary care physician in 1-2 days. I have discussed with the patient the possibility of needing to see a specialist for further workup and imaging studies if symptoms persist. I have instructed the patient to promptly return to the ER for any new or worsening symptoms including but not limited to increased pain, fever, nausea, vomiting, weakness or LOC. The patient and/or family expressed understanding of and agreement with this plan. All questions were answered. Home care instructions were provided. DISCLAIMER: Inadvertent spelling and grammatical errors are likely due to EHR/dictation software use and do not reflect on the overall quality of patient care. Also, please note that the electronic time recorded on this note does not necessarily reflect the actual time of the patient encounter. Departure Diagnosis: Primary Impression: Abscess Condition: Stable Patient Instructions: Abscess, Incision And Drainage Referrals: [facility] YOU HAVE RECEIVED A MEDICAL SCREENING EXAM AND THE RESULTS INDICATE THAT YOU DO NOT HAVE A CONDITION THAT REQUIRES URGENT TREATMENT IN THE EMERGENCY DEPARTMENT. FURTHER EVALUATION AND TREATMENT OF YOUR CONDITION CAN WAIT UNTIL YOU ARE SEEN IN YOUR DOCTORS OFFICE WITHIN THE NEXT 1-2 DAYS. IT IS YOUR RESPONSIBILITY TO MAKE AN APPOINTMENT FOR FOLOW-UP CARE. IF YOU HAVE A PRIMARY DOCTOR --you should call your primary doctor and schedule an appointment IF YOU DO NOT HAVE A PRIMARY DOCTOR YOU CAN CALL OUR PHYSICIAN REFERRAL HOTLINE AT IF YOU CAN NOT AFFORD TO SEE A PHYSICIAN YOU CAN CHOSE FROM THE FOLLOWING [facility] [address] [facility]. [facility] [address] [facility] [address] [facility]. [facility] [address] [facility]. [facility] [address] [facility]. [facility]. [address] Additional Instructions: Return to this facility in 2 DAYS for a follow-up exam.Return sooner if your condition worsens. TEDDY APRRA Jan 27, 2019 22:45
[2019-01-27 23:32] VITALS: BP 133/74; PULSE 93; RESP 18
== END 2019-01-27 23:33 | disposition home or self-care (01) ==
LOC: FTE 20:15
DX: L02.211 Cutaneous abscess of abdominal wall (principal); I10 Essential (primary) hypertension
CPT/HCPCS: 10060; Z7502; Z7610